=== PATIENT | male | born 1960 ===

== ENCOUNTER 2017-12-11 06:05 | Day surgery (SDC) | payer OTHER ==
[~2017-12-11 06:05] MED LIST: MOTRIN IB200 MG PO; ZYRTEC10 M3 PO; [UNRECOGNIZED DRUG - OTHER] PO
== END 2017-12-11 11:05 | disposition home or self-care (01) ==
LOC: CIR.AMB 06:05
DX: M75.111 Incomplete rotator cuff tear or rupture of right shoulder, not specified as traumatic (principal); M75.41 Impingement syndrome of right shoulder; M75.31 Calcific tendinitis of right shoulder